=== PATIENT | male | born 2000 | race Asian ===

== ENCOUNTER 2019-03-25 19:54 | Inpatient (IN) | payer OTHER ==
[~2019-03-25] VITALS: Ht 177.8 cm; Wt 69.4 kg
--- NOTE | 2019-03-25 20:00 | NUR ---
ED Nurse Note: Patient not in waiting room
[2019-03-25 20:15] VITALS: BP 146/86
--- NOTE | 2019-03-25 20:15 | NUR ---
ER Nurse Note: Pt walked in c/o stomach pain for 3 days (03/23). Pt stated abd pain in mid lower abd, pain 01/21 that feels tight. Pt went to urgent care 03/24 for same problem, no relief. Pt stated last BM was 2 days ago with difficulty. Bowel sounds heard, abd firm. Will continue to montior.
--- NOTE | 2019-03-25 20:38 | Emergency Room Report ---
History of Present Illness General Chief Complaint: Constipation Source: Patient (Seb Rizo MD) Present Illness HPI Presents with several days of constipation. There is been no blood. He also feels nauseated dehydrated. He has been vomiting also but there is been no blood or coffee grounds. He denies any fevers or chills. He initially denied pain. Later he reports pain of 7/10. Pain is constant. It is infraumbilical. Aching pain. He denies diarrhea. He is never had this problem before. There is been no change in his eating habits. He denies recent ill contacts. No dysuria. He tried taking Dulcolax but it has not helped. Removed a scant amount of stool today that did not have any blood. It is hard to move his bowels. No sore throat, chest pain, palpitations, shortness of breath, joint pain, rashes, depression, anxiety, visual changes, headache. (Seb Rizo MD) Allergies: Coded Allergies: No Known Allergies (Unverified , 03/25/19) Patient History Past Medical History: see triage record Pertinent Family History: DM - Grandparents Social History: Denies: smoking, alcohol use, drug use Social History Narrative Brought by mother Reviewed Nursing Documentation: PMH: Agreed; PSxH: Agreed (Seb Rizo MD) Nursing Documentation-PMH Past Medical History: No Stated History (Seb Rizo MD) Review of Systems All Other Systems: negative except mentioned in HPI (Seb Rizo MD) Physical Exam Vital Signs Date Time Temp Pulse Resp B/P (MAP) Pulse Ox O2 Delivery O2 Flow Rate FiO2 03/25/19 20:06 98.2 70 18 146/86 (106) 99 Room Air Sp02 EP Interpretation: reviewed, normal General Appearance: well appearing, no apparent distress, GCS 15 Head: normocephalic Eyes: bilateral eye normal inspection, bilateral eye PERRL ENT: dry mucus membranes Neck: supple Respiratory: lungs clear, normal breath sounds Cardiovascular #1: regular rate, rhythm Cardiovascular #2: 2+ radial (R) Gastrointestinal: normal inspection, normal bowel sounds, non tender, no mass, non-distended, scaphoid Genitourinary: no CVA tenderness Musculoskeletal: back normal, gait/station normal, normal range of motion Neurologic: alert, oriented x3, grossly normal Psychiatric: mood/affect normal Skin: no rash (Seb Rizo MD) Medical Decision Making Diagnostic Impression: Primary Impression: Colitis Additional Impressions: Abdominal pain Qualified Codes: R10.9 - Unspecified abdominal pain Intractable vomiting Qualified Codes: R11.2 - Nausea with vomiting, unspecified Dehydration ER Course Patient presents with chief complaint of constipation. He minimizes the amount of pain that he is in. He is also been vomiting. He appears dehydrated. This does not appear to be simple constipation. Patient needs to be evaluated for diabetes, UTI. His abdomen is benign at this time. Will be treated with IV hydration, Reglan and Benadryl. White count elevated. He still has abdominal pain. He rates it 7/10 at this time and constant. The nausea is slightly improved. Feels the pain is not improved at all. He has right lower quadrant tenderness. CT is ordered to rule out appendicitis. Patient signed out to Dr. Downey Laboratory Tests Test 03/25/19 21:15 03/25/19 21:50 White Blood Count 12.3 K/UL (4.8-10.8) H Red Blood Count 5.87 M/UL (4.70-6.10) Hemoglobin 17.1 G/DL (14.2-18.0) Hematocrit 47.9 % (42.0-52.0) Mean Corpuscular Volume 82 FL (80-99) Mean Corpuscular Hemoglobin 29.1 PG (27.0-31.0) Mean Corpuscular Hemoglobin Concent 35.7 G/DL (32.0-36.0) Red Cell Distribution Width 10.5 % (11.6-14.8) L Platelet Count 300 K/UL (150-450) Mean Platelet Volume 6.3 FL (6.5-10.1) L Neutrophils (%) (Auto) 76.1 % (45.0-75.0) H Lymphocytes (%) (Auto) 15.7 % (20.0-45.0) L Monocytes (%) (Auto) 6.9 % (1.0-10.0) Eosinophils (%) (Auto) 0.8 % (0.0-3.0) Basophils (%) (Auto) 0.5 % (0.0-2.0) Prothrombin Time 10.7 SEC (9.30-11.50) Prothrombin Time INR 1.0 (0.9-1.1) PTT 30 SEC (23-33) Sodium Level 139 MMOL/L (136-145) Potassium Level 3.6 MMOL/L (3.5-5.1) Chloride Level 102 MMOL/L (98-107) Carbon Dioxide Level 24 MMOL/L (21-32) Anion Gap 13 mmol/L (5-15) Blood Urea Nitrogen 15 mg/dL (7-18) Creatinine 1.4 MG/DL (0.55-1.30) H Estimate Glomerular Filtration Rate > 60 mL/min (>60) Glucose Level 96 MG/DL (74-106) Calcium Level 9.4 MG/DL (8.5-10.1) Total Bilirubin 1.1 MG/DL (0.2-1.0) H Direct Bilirubin 0.1 MG/DL (0.0-0.3) Aspartate Amino Transferase (AST) 12 U/L (15-37) L Alanine Aminotransferase (ALT) 22 U/L (12-78) Alkaline Phosphatase 57 U/L (46-116) Total Creatine Kinase 125 U/L (26-308) Total Protein 8.6 G/DL (6.4-8.2) H Albumin 4.9 G/DL (3.4-5.0) Globulin 3.7 g/dL Albumin/Globulin Ratio 1.3 (1.0-2.7) Lipase 129 U/L (73-393) Urine Color Yellow Urine Appearance Clear Urine pH 6 (4.5-8.0) Urine Specific [place] 1.025 (1.005-1.035) Urine Protein 2+ (NEGATIVE) H Urine Glucose (UA) Negative (NEGATIVE) Urine Ketones 4+ (NEGATIVE) H Urine Blood 1+ (NEGATIVE) H Urine Nitrite Negative (NEGATIVE) Urine Bilirubin Negative (NEGATIVE) Urine Urobilinogen Normal MG/DL (0.0-1.0) Urine Leukocyte Esterase 1+ (NEGATIVE) H Urine RBC 2-4 /HPF (0 - 0) H Urine WBC 0-2 /HPF (0 - 0) Urine Squamous Epithelial Cells None /LPF (NONE/OCC) Urine Bacteria Few /HPF (NONE) Urine Opiates Screen Negative (NEGATIVE) Urine Barbiturates Screen Negative (NEGATIVE) Phencyclidine (PCP) Screen Negative (NEGATIVE) Urine Amphetamines Screen Negative (NEGATIVE) Urine Benzodiazepines Screen Negative (NEGATIVE) Urine Cocaine Screen Negative (NEGATIVE) Urine Marijuana (THC) Screen Negative (NEGATIVE) (Seb Rizo MD) ER Course Hospital Course 19 yo M presents with abd pain, vomiting Clinical course Patient initially seen and evaluated by KAYCEE Cedeño; please see her note for full history and physical Labs - noted leukocytosis, Hb/Hct stable. electrolyte susi, UA negative CT abdomen and pelvis - colitis noted, unable to visualize appendix Went to reassess patient. Patient continues to have pain and vomiting. Despite multiple rounds of medication. Case discussed with Dr. Dumas and he agreed to accept the patient to his service for further care and support I feel this is a highly complex case requiring extensive working including EKG/ Rhythm strip, Xray/CT/US, Blood/urine lab work, repeat exams while in ED, and administration of strong opiates/narcotics for pain control, admission to hospital or close patient follow up. Diagnosis - colitis, abdominal pain, intractable vomiting Patient admitted to floor in serious condition Labs Test 03/25/19 21:15 03/25/19 21:50 White Blood Count 12.3 K/UL (4.8-10.8) Red Blood Count 5.87 M/UL (4.70-6.10) Hemoglobin 17.1 G/DL (14.2-18.0) Hematocrit 47.9 % (42.0-52.0) Mean Corpuscular Volume 82 FL (80-99) Mean Corpuscular Hemoglobin 29.1 PG (27.0-31.0) Mean Corpuscular Hemoglobin Concent 35.7 G/DL (32.0-36.0) Red Cell Distribution Width 10.5 % (11.6-14.8) Platelet Count 300 K/UL (150-450) Mean Platelet Volume 6.3 FL (6.5-10.1) Neutrophils (%) (Auto) 76.1 % (45.0-75.0) Lymphocytes (%) (Auto) 15.7 % (20.0-45.0) Monocytes (%) (Auto) 6.9 % (1.0-10.0) Eosinophils (%) (Auto) 0.8 % (0.0-3.0) Basophils (%) (Auto) 0.5 % (0.0-2.0) Prothrombin Time 10.7 SEC (9.30-11.50) Prothromb Time International Ratio 1.0 (0.9-1.1) Activated Partial Thromboplast Time 30 SEC (23-33) Sodium Level 139 MMOL/L (136-145) Potassium Level 3.6 MMOL/L (3.5-5.1) Chloride Level 102 MMOL/L (98-107) Carbon Dioxide Level 24 MMOL/L (21-32) Anion Gap 13 mmol/L (5-15) Blood Urea Nitrogen 15 mg/dL (7-18) Creatinine 1.4 MG/DL (0.55-1.30) Estimat Glomerular Filtration Rate > 60 mL/min (>60) Glucose Level 96 MG/DL (74-106) Calcium Level 9.4 MG/DL (8.5-10.1) Total Bilirubin 1.1 MG/DL (0.2-1.0) Direct Bilirubin 0.1 MG/DL (0.0-0.3) Aspartate Amino Transf (AST/SGOT) 12 U/L (15-37) Alanine Aminotransferase (ALT/SGPT) 22 U/L (12-78) Alkaline Phosphatase 57 U/L (46-116) Total Creatine Kinase 125 U/L (26-308) Total Protein 8.6 G/DL (6.4-8.2) Albumin 4.9 G/DL (3.4-5.0) Globulin 3.7 g/dL Albumin/Globulin Ratio 1.3 (1.0-2.7) Lipase 129 U/L (73-393) Urine Color Yellow Urine Appearance Clear Urine pH 6 (4.5-8.0) Urine Specific [place] 1.025 (1.005-1.035) Urine Protein 2+ (NEGATIVE) Urine Glucose (UA) Negative (NEGATIVE) Urine Ketones 4+ (NEGATIVE) Urine Blood 1+ (NEGATIVE) Urine Nitrite Negative (NEGATIVE) Urine Bilirubin Negative (NEGATIVE) Urine Urobilinogen Normal MG/DL (0.0-1.0) Urine Leukocyte Esterase 1+ (NEGATIVE) Urine RBC 2-4 /HPF (0 - 0) Urine WBC 0-2 /HPF (0 - 0) Urine Squamous Epithelial Cells None /LPF (NONE/OCC) Urine Bacteria Few /HPF (NONE) Urine Opiates Screen Negative (NEGATIVE) Urine Barbiturates Screen Negative (NEGATIVE) Phencyclidine (PCP) Screen Negative (NEGATIVE) Urine Amphetamines Screen Negative (NEGATIVE) Urine Benzodiazepines Screen Negative (NEGATIVE) Urine Cocaine Screen Negative (NEGATIVE) Urine Marijuana (THC) Screen Negative (NEGATIVE) (Irving Downey MD) CT/MRI/US Diagnostic Results CT/MRI/US Diagnostic Results : Imaging Test Ordered: CT A/P Impression Clinical history was limited to abdominal pain only. Motion degraded study. Hepatomegaly and mild hepatic steatosis present. No acute findings involving the solid abdominal organs or gallbladder. Lower GI tract demonstrates no obstruction or pneumatosis. Nonspecific wall thickening of the rectosigmoid colon may reflect distal colitis. Moderate liquid stool present in the colon suggesting acute enteritis or other acute diarrheal disease. The appendix was not visualized. Negative for pneumoperitoneum or abdominal pelvic fluid collections. Urinary bladder demonstrates mild wall thickening with reticulation likely related to chronic outlet obstruction, cystitis not excluded. (Irving Downey MD) Last Vital Signs Date Time Temp Pulse Resp B/P (MAP) Pulse Ox O2 Delivery O2 Flow Rate FiO2 03/26/19 02:29 98.6 59 18 150/85 (106) 99 03/26/19 01:16 Room Air Status: improved (Seb Rizo MD) Status: improved (Irving Downey MD) Disposition: ADMITTED INPATIENT Condition: Serious Seb Rizo MD Mar 25, 2019 20:38 Irving Downey MD Mar 26, 2019 01:46
[2019-03-25] MEDS ORDERED: DiphenhydrAMINE 50mg/ml Inj IVP ONE (20:45)
[2019-03-25] MEDS ORDERED: Metoclopramide 10mg/2ml Inj IVP ONE (20:45)
[2019-03-25 21:41] LABS: BASOPHILS % (AUTO) 0.5 % (0.0-2.0); EOSINOPHILS % (AUTO) 0.8 % (0.0-3.0); HEMATOCRIT 47.9 % (42.0-52.0); HEMOGLOBIN 17.1 G/DL (14.2-18.0); LYMPHOCYTES % (AUTO) 15.7 % (20.0-45.0); MEAN CORPUSCULAR VOLUME 82 FL (80-99); MONOCYTES % (AUTO) 6.9 % (1.0-10.0); NEUTROPHILS % (AUTO) 76.1 % (45.0-75.0); PLATELET COUNT 300 K/UL (150-450); RED BLOOD COUNT 5.87 M/UL (4.70-6.10); RED CELL DISTRIBUTION WIDTH 10.5 % (11.6-14.8); WHITE BLOOD COUNT 12.3 K/UL (4.8-10.8)
[2019-03-25 21:42] LABS: ANION GAP 13 mmol/L (5-15); BLOOD UREA NITROGEN 15 mg/dL (7-18); CALCIUM 9.4 MG/DL (8.5-10.1); CARBON DIOXIDE 24 MMOL/L (21-32); CHLORIDE 102 MMOL/L (98-107); CREATININE 1.4 MG/DL (0.55-1.30); POTASSIUM 3.6 MMOL/L (3.5-5.1); SODIUM 139 MMOL/L (136-145)
[2019-03-25 21:55] LABS: ALANINE AMINOTRANSFERASE 22 U/L (12-78); ALBUMIN 4.9 G/DL (3.4-5.0); ALBUMIN/GLOBULIN RATIO 1.3 (1.0-2.7); ALKALINE PHOSPHATASE 57 U/L (46-116); ASPARTATE AMINO TRANSFERASE 12 U/L (15-37); BILIRUBIN,TOTAL 1.1 MG/DL (0.2-1.0); CREATINE KINASE 125 U/L (26-308)
[2019-03-25 22:08] LABS: BILIRUBIN,DIRECT 0.1 MG/DL (0.0-0.3)
[2019-03-25] MEDS ORDERED: Sodium Chloride 550 ML IV SCH (22:30)
[2019-03-25] MEDS ORDERED: Isovue-300 100ml vial INJ PRN (22:30)
[2019-03-25] MEDS ORDERED: Ketorolac 30mg Inj IV ONE (22:30)
[2019-03-25 22:43] LABS: APPEARANCE,URINE CLEAR; BILIRUBIN, URINE NEGATIVE (NEGATIVE); GLUCOSE, URINE (UA) NEGATIVE (NEGATIVE); KETONES,URINE 4+ (NEGATIVE); LEUKOCYTE ESTERASE ,URINE 1+ (NEGATIVE); NITRITE,URINE NEGATIVE (NEGATIVE); PH,URINE 6 (4.5-8.0); PROTEIN,URINE 2+ (NEGATIVE); UROBILINOGEN,URINE NORMAL MG/DL (0.0-1.0)
[2019-03-25 22:45] LABS: COLOR,URINE YELLOW
[2019-03-25 23:00] VITALS: BP 140/78
--- NOTE | 2019-03-25 23:10 | Diagnostic Imaging Report ---
Indication: Abdominal pain Technique: Continuous helical transaxial imaging of the abdomen and pelvis was obtained from the lung bases to the pubic symphysis during intravenous contrast administration. Coronal 2-D reformats were also obtained. Study obtained in a Siemens sensation [address] Automatic Exposure Control was utilized. Total Dose length Product (DLP): 651.[address] Dose Index Volume (CTDIvol): 12.54 mGy Comparison: None Findings: The lung bases are clear. Solid organs are unremarkable. There is no evidence of a free fluid or free air. No evidence of bowel obstruction. Liquefied stool in the colon may be a sign of diarrhea. Correlate clinically for gastroenteritis. Solid organs appear normal. There is no hydronephrosis. Lung bases are clear. Gallbladder is unremarkable. IMPRESSION: Correlate for diarrhea given liquefied stool in the colon. Gastroenteritis may be present. Negative exam otherwise The CT scanner at [facility] is accredited by the [employer] and the scans are performed using dose optimization techniques as appropriate to a performed exam including Automatic Exposure control.
[2019-03-26] VITALS (7 sets, daily range): BP systolic 121–150; BP diastolic 63–85
--- NOTE | 2019-03-26 | NUR ---
ER Nurse Note: Pt is vomiting, ERMD aware; first episode of n/v. Pt is on continous fluids; tolerating well. Pt no distress, calm. Will continue to montior.
[2019-03-26] MEDS ORDERED: Morphine Sulfate 4mg/ml Inj (IV USE ONLY) IVP ONE (00:30)
[2019-03-26] MEDS ORDERED: NKM (00:49)
--- NOTE | 2019-03-26 02:05 | NUR ---
ER Nurse Note: Report given to ABELARDO Williamson in [place] for contintuiy of care. Pt a&ox4, VSS, no fever, RA, stable. All belongings taken with mom.
--- NOTE | 2019-03-26 02:20 | NUR ---
NURSE NOTES: Patient came from ER via gurney. A&OX4. IV site patent and intact. Skin intact. Belongings are checked. Mother at bedside. Bed in lowest position. Call light within reach. Will continue to monitor.
--- NOTE | 2019-03-26 02:33 | NUR ---
NURSE NOTES: Call and left message to Dr. Dumas for new admit order. Waiting a call back.
[2019-03-26] MEDS ORDERED: Morphine Sulfate 2mg/ml Inj(IV/IM USE ONLY) IVP PRN (03:00)
[2019-03-26] MEDS: Piperacillin/Tazobactam 3.375 GM in NS 110 ML IVPB SCH ×3 (03:40→20:00)
--- NOTE | 2019-03-26 07:23 | NUR ---
HAND-OFF: Report given to Mat ZHOU.
--- NOTE | 2019-03-26 08:04 | NUR ---
NURSE NOTES: received report from ABELARDO Arzola. patient in bed. alert. oriented. verbally responsive, no respiratory distress noted. no c/o abd pain at this time. IV on RAC18 running fluid. no n/v at this time. bed in the lowest position. call light within reach. will continue to provide plan of care.
--- NOTE | 2019-03-26 10:25 | NUR ---
CASE MANAGEMENT:REVIEW 19 YR OLD MALE PRESENTED TO ER FROM HOME CC; ABDOMINAL PAIN SI:COLITIS. ABDOMINAL PAIN. DEHYDRATION 98.3 70 18 146/86 99% ON RA WBC+12.3 IS: IV REGLAN 1L NS BOLUS IV BENADRYL IV TORADOL IV MORPHINE IV ZOFRAN CT ABD/PELVIS : TO MED/SURG [facility]
--- NOTE | 2019-03-26 10:52 | General Progress Note ---
Assessment/Plan Assessment/Plan: GI CONSULT Dictated Suspect uncomplicated gastroenteritis, possibly viral. Will order stool studies. Continue hydration PO as tolerated OK to observe off abx Thank you Severo Hatfield MD Subjective Allergies: Coded Allergies: No Known Allergies (Unverified , 03/25/19) Objective Last 24 Hour Vital Signs Date Time Temp Pulse Resp B/P (MAP) Pulse Ox O2 Delivery O2 Flow Rate FiO2 03/26/19 09:00 Room Air 03/26/19 08:00 98.3 58 20 125/73 (90) 100 03/26/19 04:00 98.0 53 22 121/69 (86) 100 03/26/19 02:42 Room Air 03/26/19 02:29 98.6 59 18 150/85 (106) 99 03/26/19 02:05 98.0 68 16 112/70 99 Room Air 03/26/19 01:54 98.2 03/26/19 01:54 98.2 03/26/19 01:16 98.2 82 16 138/80 99 Room Air 03/25/19 23:00 98.2 80 18 140/78 99 Room Air 03/25/19 20:15 98.2 76 18 146/86 99 Room Air 03/25/19 20:06 98.2 70 18 146/86 (106) 99 Room Air Intake and Output 03/25/19 03/26/19 19:00 07:00 Intake Total 4982.5 ml Balance 4982.5 ml Intake IV Total 4982.5 ml # Voids 1 Laboratory Tests 03/25/19 21:15: White Blood Count 12.3H, Red Blood Count 5.87, Hemoglobin 17.1, Hematocrit 47.9 , Mean Corpuscular Volume 82, Mean Corpuscular Hemoglobin 29.1, Mean Corpuscular Hemoglobin Concent 35.7, Red Cell Distribution Width 10.5L, Platelet Count 300, Mean Platelet Volume 6.3L, Neutrophils (%) (Auto) 76.1H, Lymphocytes (%) (Auto) 15.7L, Monocytes (%) (Auto) 6.9, Eosinophils (%) (Auto) 0.8, Basophils (%) (Auto) 0.5, Prothrombin Time 10.7, Prothromb Time International Ratio 1.0, Activated Partial Thromboplast Time 30, Sodium Level 139, Potassium Level 3.6, Chloride Level 102, Carbon Dioxide Level 24, Anion Gap 13, Blood Urea Nitrogen 15, Creatinine 1.4H, Estimat Glomerular Filtration Rate > 60, Glucose Level 96, Calcium Level 9.4, Total Bilirubin 1.1H, Direct Bilirubin 0.1, Aspartate Amino Transf (AST/SGOT) 12L, Alanine Aminotransferase ( ALT/SGPT) 22, Alkaline Phosphatase 57, Total Creatine Kinase 125, Total Protein 8.6H, Albumin 4.9, Globulin 3.7, Albumin/Globulin Ratio 1.3, Lipase 129 03/25/19 21:50: Urine Color Yellow, Urine Appearance Clear, Urine pH 6, Urine Specific [place] 1.025, Urine Protein 2+H, Urine Glucose (UA) Negative, Urine Ketones 4+H, Urine Blood 1+H, Urine Nitrite Negative, Urine Bilirubin Negative, Urine Urobilinogen Normal, Urine Leukocyte Esterase 1+H, Urine RBC 2-4H, Urine WBC 0-2, Urine Squamous Epithelial Cells None, Urine Bacteria Few, Urine Opiates Screen Negative, Urine Barbiturates Screen Negative, Phencyclidine (PCP) Screen Negative, Urine Amphetamines Screen Negative, Urine Benzodiazepines Screen Negative, Urine Cocaine Screen Negative, Urine Marijuana (THC) Screen Negative Height (Feet): 5 Height (Inches): 10.00 Weight (Pounds): 153 Severo Hatfield MD Mar 26, 2019 10:52
--- NOTE | 2019-03-26 11:03 | NUR ---
*-* INSURANCE *-* ALL CLINICALS AND REVIEWS HAVE BEEN FAXED TO: [employer] FA[employer] CL[employer]ICALS TO: [phone]
--- NOTE | 2019-03-26 14:46 | Consultation ---
History of Present Illness General Date patient seen: Mar 26, 2019 Reason for Hospitalization: Constipation Present Illness HPI Very pleasant 19-year-old female presented to the emergency department [facility] complaining of worsening abdominal discomfort, constipation, feeling unwell. Complaining of generalized abdominal discomfort with some radiation in the right lower quadrant as well as left lower quadrant. Labs with leukocytosis. CT as below. Surgery called to evaluate and assist with care and management. Patient seen, patient evaluated, chart reviewed. Patient' s mother in the room alongside him. States he feels well and is urinating well and passing flatus but has not had a bowel movement yet. Allergies: Coded Allergies: No Known Allergies (Unverified , 03/25/19) Medication History Scheduled No Known Medications* (NKM - No Known Medications*), 0 ., (Reported) Patient History History Provided By: Patient, Family Member, Medical Record, PMD Healthcare decision maker Resuscitation status Full Code Advanced Directive on File Past Medical/Surgical History Past Medical/Surgical History: (1) Dehydration (2) Colitis (3) Intractable vomiting (4) Abdominal pain Review of Systems Review of Symptoms General ROS: no weight loss or fever Psychological ROS: no depression or mood changes, no memory loss Ophthalmic ROS: no visual changes or eye irritation ENT ROS: no nasal congestion, hearing loss, dizziness Allergy and Immunology ROS: no allergic symptoms or urticaria Hematological and Lymphatic ROS: no swollen glands, unusual bleeding or bruising Endocrine ROS: no polyuria, polydipsia, weight changes, temperature intolerance Respiratory ROS: no cough, shortness of breath, or wheezing Cardiovascular ROS: no chest pain or dyspnea on exertion Gastrointestinal ROS: denies abdominal pain, nobright red blood in stool. Musculoskeletal ROS: no myalgias or arthralgias Neurological ROS: no TIA or stroke symptoms Dermatological ROS: no new or changing skin lesions, rashes or pruritis Physical Exam Physical Exam General appearance: alert, cooperative, no distress, appears stated age Head: Normocephalic, without obvious abnormality, atraumatic Eyes: conjunctivae/corneas clear. PERRL, EOM's intact. Fundi benign Throat: Lips, mucosa, and tongue normal. Teeth and gums normal Neck: supple, symmetrical, trachea midline, no adenopathy, thyroid: not enlarged, symmetric, no tenderness/mass/nodules, no carotid bruit and no JVD Lungs: clear to auscultation bilaterally Heart: regular rate and rhythm, S1, S2 normal, no murmur, click, rub or gallop Abdomen: soft, non-tender. Bowel sounds normal. No masses, no organomegaly Extremities: extremities normal, atraumatic, no cyanosis or edema Pulses: 2+ and symmetric Skin: Skin color, texture, turgor normal. No rashes or lesions Neurologic: Grossly normal Last 24 Hour Vital Signs Date Time Temp Pulse Resp B/P (MAP) Pulse Ox O2 Delivery O2 Flow Rate FiO2 03/26/19 12:00 97.3 63 20 133/63 (86) 98 03/26/19 09:00 Room Air 03/26/19 08:00 98.3 58 20 125/73 (90) 100 03/26/19 04:00 98.0 53 22 121/69 (86) 100 03/26/19 02:42 Room Air 03/26/19 02:29 98.6 59 18 150/85 (106) 99 03/26/19 02:05 98.0 68 16 112/70 99 Room Air 03/26/19 01:54 98.2 03/26/19 01:54 98.2 03/26/19 01:16 98.2 82 16 138/80 99 Room Air 03/25/19 23:00 98.2 80 18 140/78 99 Room Air 03/25/19 20:15 98.2 76 18 146/86 99 Room Air 03/25/19 20:06 98.2 70 18 146/86 (106) 99 Room Air Intake and Output 03/25/19 03/26/19 19:00 07:00 Intake Total 4982.5 ml Balance 4982.5 ml Intake IV Total 4982.5 ml # Voids 1 Laboratory Tests Test 03/25/19 21:15 03/25/19 21:50 White Blood Count 12.3 K/UL (4.8-10.8) H Red Blood Count 5.87 M/UL (4.70-6.10) Hemoglobin 17.1 G/DL (14.2-18.0) Hematocrit 47.9 % (42.0-52.0) Mean Corpuscular Volume 82 FL (80-99) Mean Corpuscular Hemoglobin 29.1 PG (27.0-31.0) Mean Corpuscular Hemoglobin Concent 35.7 G/DL (32.0-36.0) Red Cell Distribution Width 10.5 % (11.6-14.8) L Platelet Count 300 K/UL (150-450) Mean Platelet Volume 6.3 FL (6.5-10.1) L Neutrophils (%) (Auto) 76.1 % (45.0-75.0) H Lymphocytes (%) (Auto) 15.7 % (20.0-45.0) L Monocytes (%) (Auto) 6.9 % (1.0-10.0) Eosinophils (%) (Auto) 0.8 % (0.0-3.0) Basophils (%) (Auto) 0.5 % (0.0-2.0) Prothrombin Time 10.7 SEC (9.30-11.50) Prothromb Time International Ratio 1.0 (0.9-1.1) Activated Partial Thromboplast Time 30 SEC (23-33) Sodium Level 139 MMOL/L (136-145) Potassium Level 3.6 MMOL/L (3.5-5.1) Chloride Level 102 MMOL/L (98-107) Carbon Dioxide Level 24 MMOL/L (21-32) Anion Gap 13 mmol/L (5-15) Blood Urea Nitrogen 15 mg/dL (7-18) Creatinine 1.4 MG/DL (0.55-1.30) H Estimat Glomerular Filtration Rate > 60 mL/min (>60) Glucose Level 96 MG/DL (74-106) Calcium Level 9.4 MG/DL (8.5-10.1) Total Bilirubin 1.1 MG/DL (0.2-1.0) H Direct Bilirubin 0.1 MG/DL (0.0-0.3) Aspartate Amino Transf (AST/SGOT) 12 U/L (15-37) L Alanine Aminotransferase (ALT/SGPT) 22 U/L (12-78) Alkaline Phosphatase 57 U/L (46-116) Total Creatine Kinase 125 U/L (26-308) Total Protein 8.6 G/DL (6.4-8.2) H Albumin 4.9 G/DL (3.4-5.0) Globulin 3.7 g/dL Albumin/Globulin Ratio 1.3 (1.0-2.7) Lipase 129 U/L (73-393) Urine Color Yellow Urine Appearance Clear Urine pH 6 (4.5-8.0) Urine Specific [place] 1.025 (1.005-1.035) Urine Protein 2+ (NEGATIVE) H Urine Glucose (UA) Negative (NEGATIVE) Urine Ketones 4+ (NEGATIVE) H Urine Blood 1+ (NEGATIVE) H Urine Nitrite Negative (NEGATIVE) Urine Bilirubin Negative (NEGATIVE) Urine Urobilinogen Normal MG/DL (0.0-1.0) Urine Leukocyte Esterase 1+ (NEGATIVE) H Urine RBC 2-4 /HPF (0 - 0) H Urine WBC 0-2 /HPF (0 - 0) Urine Squamous Epithelial Cells None /LPF (NONE/OCC) Urine Bacteria Few /HPF (NONE) Urine Opiates Screen Negative (NEGATIVE) Urine Barbiturates Screen Negative (NEGATIVE) Phencyclidine (PCP) Screen Negative (NEGATIVE) Urine Amphetamines Screen Negative (NEGATIVE) Urine Benzodiazepines Screen Negative (NEGATIVE) Urine Cocaine Screen Negative (NEGATIVE) Urine Marijuana (THC) Screen Negative (NEGATIVE) Height (Feet): 5 Height (Inches): 10.00 Weight (Pounds): 153 Medications Current Medications Medications (Trade) Dose Ordered Sig/Tiesha Route PRN Reason Start Time Stop Time Status Last Admin Dose Admin Dextrose/ Electrolytes 1,000 ml @ 150 mls/hr Q6H40M IV 03/26/19 04:00 04/25/19 03:59 03/26/19 12:19 Morphine Sulfate (Morphine Sulfate) 2 mg Q4H PRN IVP For Pain 03/26/19 03:00 04/02/19 02:59 Ondansetron HCl (Zofran) 4 mg Q6H PRN IVP Nausea & Vomiting 03/26/19 03:00 04/25/19 02:59 Piperacillin Sod/ Tazobactam Sod 3.375 gm/Sodium Chloride 110 ml @ 27.5 mls/hr Q8H IVPB 03/26/19 04:00 04/02/19 03:59 03/26/19 12:25 Assessment/Plan Problem List: (1) Colitis Assessment & Plan: Findings: The lung bases are clear. Solid organs are unremarkable. There is no evidence of a free fluid or free air. No evidence of bowel obstruction. Liquefied stool in the colon may be a sign of diarrhea. Correlate clinically for gastroenteritis. Solid organs appear normal. There is no hydronephrosis. Lung bases are clear. Gallbladder is unremarkable. IMPRESSION: Correlate for diarrhea given liquefied stool in the colon. Gastroenteritis may be present. Negative exam otherwise ICD Codes: K52.9 - Noninfective gastroenteritis and colitis, unspecified SNOMED: 48777829 (2) Abdominal pain Assessment & Plan: 19-year-old male with abdominal discomfort, constipation, dehydration. Likely viral in nature. CT noted. GI input appreciated. Given labs exam history and findings unlikely to be appendicitis or other surgical planning at this time. Abdominal pain is resolved since admission and he is colicky from above discomfort. No acute surgical intervention planned. Bowel regimen Diet as tolerated We will follow with examinations and recommendations Thank you for allowing me to participate in patient's care ICD Codes: R10.9 - Unspecified abdominal pain SNOMED: 82231148 Qualifiers: Qualified Codes: R10.9 - Unspecified abdominal pain Yoshi Dial Mar 26, 2019 14:46
--- NOTE | 2019-03-26 19:27 | NUR ---
HAND-OFF: Report given to PROSPER Haas.
--- NOTE | 2019-03-26 20:00 | NUR ---
NURSE NOTES: RECEIVED PATIENT LYING IN BED, AWAKE, ALERT/ORIENTED X4, VERBALLY RESPONSIVE, DENIES ABDOMINAL PAIN, N/V/D. NO SIGNS AND SYMPTOMS OF ACUTE CARDIO RESPIRATORY DISTRESS/SHORTNESS OF BREATH, DENIES CHEST PAIN, NO EDEMA NOTED. TOLERATING IV FLUIDS, NO REDNESS/SWELLING NOTED. TOLERATING IV ANTIBIOTIC, NO ADVERSE REACTION NOTED. STOOL SPECIMEN NEEDED FOR CULTURE, PATIENT AWARE. SIDE RAILS UP X3/BED IN LOWEST POSITION FOR SAFETY. CALL LIGHT WITHIN REACH. NAD.
--- NOTE | 2019-03-26 20:45 | Consultation ---
DATE OF CONSULTATION: 03/26/2019 GASTROENTEROLOGY CONSULTATION CHIEF COMPLAINT: I was asked to see this patient by Dr. Seb Dumas for evaluation of abdominal issues. HISTORY OF PRESENT ILLNESS: The patient is a pleasant 19-year-old man, who first noted about 3 days of constipation. He took 2 Dulcolax tablets yesterday, which resulted in diarrhea. He also had some mild degree of pain and predominantly nausea and some vomiting. He therefore came to the emergency room where evaluation showed some mild degree of leukocytosis with azotemia and there were some ill-defined changes in the distal colon on the CT scan. Therefore, he has been admitted to the hospital. There is no hematochezia or hematemesis. He has usually regular bowel movements. He has had no recent trips and no recent antibiotics and no contacts and no pets. His mother however is visiting from out of town for the past 2 weeks. PAST MEDICAL HISTORY: Otherwise negative. FAMILY HISTORY: Positive for diabetes. MEDICATIONS: As an outpatient, none. ALLERGIES: None. SOCIAL HISTORY: The patient is single. He does not smoke or drink. He school. REVIEW OF SYSTEMS: Otherwise negative. PHYSICAL EXAMINATION: GENERAL: A pleasant thin man, seen in his room. HEENT: Normocephalic and atraumatic. Sclerae are anicteric. Oropharynx clear. NECK: Supple. CHEST: Clear to auscultation. CARDIOVASCULAR: Revealed a regular rate. ABDOMEN: Soft and nontender with good bowel sounds. There is no organomegaly or masses. EXTREMITIES: Revealed no edema. LABORATORY DATA: Noted. ASSESSMENT: This patient presents with three days of initial constipation and with subsequent bout of diarrhea after taking Dulcolax. The colonic images show liquefied stool on the CT scan. Therefore, I suspected underlying pathologies actually for gastroenteritis, which perhaps felt like constipation to the patient, but in reality, there was an inflammatory process. The patient's stool should be checked for typical cultures and pathogens, but treatment can be conservative. Oral diet can be given. IV hydration should be completed. The patient can be given a course of Cipro and Flagyl alternatively, but he can be watched off antibiotics depending on the stool results. RECOMMENDATIONS: Per above discussion and per orders written in the chart. Thank you for asking me to participate in the care of this patient. Severo Hatfield M.D. DR: NUBIA JOB#: [id number] CC:
--- NOTE | 2019-03-26 22:56 | NUR ---
NURSE NOTES: STOOL SPECIMEN COLLECTED AND SENT TO LAB FOR CULTURE-
[2019-03-27] VITALS: BP 125/80
--- NOTE | 2019-03-27 00:15 | History and Physical Report ---
DATE OF ADMISSION: 03/26/2019 REASON FOR ADMISSION: Abdominal pain. HISTORY OF PRESENT ILLNESS: This 19-year-old male with no prior history of GI illness has had 3 days of constipation. He took Dulcolax tablets x2 and developed diarrhea. He has had some nausea and vomiting subsequently and came to the emergency room where he was noted to have some mild leukocytosis and a CAT scan revealing some distal colon irregularities that possibly suggests colitis. The patient has not had any recent travel, recent antibiotic use, or recent unusual oral intake. ALLERGIES: None. MEDICATIONS: None. FAMILY HISTORY: Notable for diabetes. PAST MEDICAL HISTORY: Negative. SOCIAL HISTORY: Negative for smoking, alcohol, or substance abuse. REVIEW OF SYSTEMS: A 10-point review of systems performed. All systems negative other than noted above. PHYSICAL EXAMINATION: VITAL SIGNS: Blood pressure 121/69, pulse 53, respirations 22, afebrile. HEENT: Conjunctivae pink. Oropharynx clear. Mucous membranes moist. NECK: Supple. Jugular venous pressure normal. LUNGS: Clear. No adenopathy. CARDIAC: Regular. Normal S1, S2 with no murmur. ABDOMEN: Soft. Good bowel sounds. No focal tenderness, guarding, or rebound. EXTREMITIES: Without edema. LABORATORY DATA: Reviewed. IMPRESSION: 1. Possible gastroenteritis. 2. Possible acute colitis. 3. Mild hypovolemia. 4. Dehydration. PLAN: 1. IV fluid hydration. 2. Empiric antimicrobials. 3. Stool studies. Seb Dumas M.D. DR: [place] JOB#: [id number] CC:
[2019-03-27 04:00] VITALS: BP 122/69
[2019-03-27] MEDS: Piperacillin/Tazobactam 3.375 GM in NS 110 ML IVPB SCH ×2 (04:14→12:34)
--- NOTE | 2019-03-27 06:48 | NUR ---
NURSE NOTES: RESTED WELL, NO SIGNIFICANT CHANGE OF CONDITION NOTED THROUGHOUT THE NIGHT. SAFETY MAINTAINED. NAD.
[2019-03-27 07:24] LABS: BASOPHILS % (AUTO) 0.7 % (0.0-2.0); EOSINOPHILS % (AUTO) 0.8 % (0.0-3.0); HEMATOCRIT 46.9 % (42.0-52.0); HEMOGLOBIN 15.6 G/DL (14.2-18.0); MEAN CORPUSCULAR VOLUME 87 FL (80-99); MONOCYTES % (AUTO) 9.1 % (1.0-10.0); NEUTROPHILS % (AUTO) 79.5 % (45.0-75.0); PLATELET COUNT 233 K/UL (150-450); RED BLOOD COUNT 5.39 M/UL (4.70-6.10); RED CELL DISTRIBUTION WIDTH 11.3 % (11.6-14.8); WHITE BLOOD COUNT 8.2 K/UL (4.8-10.8)
--- NOTE | 2019-03-27 07:50 | NUR ---
NURSE NOTES: received report from ABELARDO Haas. patient in bed. alert. oriented. verbally responsive. no respiratory distress noted. no c/o abd pain. no n/v at this time. IV on RAC running zosyn. bed in the lowest position. call light within reach. will continue to provide plan of care.
[2019-03-27 08:00] VITALS: BP 127/71
[2019-03-27 08:06] LABS: ANION GAP 7 mmol/L (5-15); BLOOD UREA NITROGEN 10 mg/dL (7-18); CALCIUM 9.1 MG/DL (8.5-10.1); CARBON DIOXIDE 28 MMOL/L (21-32); CHLORIDE 104 MMOL/L (98-107); CREATININE 1.3 MG/DL (0.55-1.30); POTASSIUM 3.9 MMOL/L (3.5-5.1); SODIUM 139 MMOL/L (136-145)
--- NOTE | 2019-03-27 11:21 | NUR ---
CASE MANAGEMENT:REVIEW 03/27/19 SI: POSSIBLE GASTROENTERITIS POSSIBLE ACUTE COLITIS. DEHYDRATION 98.0 78 18 122/69 96% ON RA LABS ~ WNL IS: IV ZOSYN Q8HRS IVF@100/HR : MED/SURG STATUS 4 EAST PLAN: STOOL CULTURE RESULTS PENDING LOW FAT DIET
[2019-03-27 12:00] VITALS: BP 142/74
--- NOTE | 2019-03-27 13:48 | NUR ---
NURSE NOTES: patient discharged to home with stable condition assisted by mother by walking. no respiratory distress noted. no c/o any pain at this time. no n/v. no diarrhea. checked and counted belongings with patient and obtained sign. provide dc packet and got patient's sign. given new prescription Augmentin 500mg po bid #10. by Dr. olsen. removed IV and ID band.
--- NOTE | 2019-03-27 14:35 | General Progress Note ---
Assessment/Plan Assessment/Plan: Assesssment - enteritis, resolving - mild leukocystosis, resolved - presumed self limited viral gastroenteritis Recommendations - push po - OK to watch off of abx - d/c planning - Outpatient f/u Subjective Allergies: Coded Allergies: No Known Allergies (Unverified , 03/25/19) Subjective feels ok (+) BM tolerating PO d/w PMD Objective Last 24 Hour Vital Signs Date Time Temp Pulse Resp B/P (MAP) Pulse Ox O2 Delivery O2 Flow Rate FiO2 03/27/19 12:00 98.2 73 18 142/74 (96) 97 03/27/19 09:00 Room Air 03/27/19 08:00 98.1 67 18 127/71 (89) 97 03/27/19 04:00 98.0 78 18 122/69 (86) 96 03/27/19 00:00 97.9 79 20 125/80 (95) 97 03/26/19 21:00 Room Air 03/26/19 20:00 98.7 83 18 127/75 (92) 97 03/26/19 16:00 98.1 75 20 134/76 (95) 99 Intake and Output 03/26/19 03/27/19 19:00 07:00 Intake Total 1650.0 ml 915.0 ml Balance 1650.0 ml 915.0 ml Intake Oral 1240 ml IV Total 410.0 ml 915.0 ml # Voids 8 2 # Bowel Movements 2 Laboratory Tests 03/27/19 06:45: White Blood Count 8.2, Red Blood Count 5.39, Hemoglobin 15.6, Hematocrit 46.9, Mean Corpuscular Volume 87, Mean Corpuscular Hemoglobin 28.9, Mean Corpuscular Hemoglobin Concent 33.2, Red Cell Distribution Width 11.3L, Platelet Count 233, Mean Platelet Volume 7.2, Neutrophils (%) (Auto) 79.5H, Lymphocytes (%) (Auto) 10.0L, Monocytes (%) (Auto) 9.1, Eosinophils (%) (Auto) 0.8, Basophils (%) (Auto ) 0.7, Erythrocyte Sedimentation Rate 2, Sodium Level 139, Potassium Level 3.9, Chloride Level 104, Carbon Dioxide Level 28, Anion Gap 7, Blood Urea Nitrogen 10 , Creatinine 1.3, Estimat Glomerular Filtration Rate > 60, Glucose Level 102, Calcium Level 9.1, C-Reactive Protein, Quantitative < 0.4 Height (Feet): 5 Height (Inches): 10.00 Weight (Pounds): 153 Severo Hatfield MD Mar 27, 2019 14:35
--- NOTE | 2019-03-27 15:41 | Surgery Progress Note ---
Surgery Progress Note Subjective Symptoms: improved, pain absent, tolerating diet, voiding well, passing flatus , BM Additional Comments Patient seen and examined bedside. States he had a bowel movement. Feels much better. No pain. No nausea vomiting fever chills. labs improved Objective Last 24 Hour Vital Signs Date Time Temp Pulse Resp B/P (MAP) Pulse Ox O2 Delivery O2 Flow Rate FiO2 03/27/19 12:00 98.2 73 18 142/74 (96) 97 03/27/19 09:00 Room Air 03/27/19 08:00 98.1 67 18 127/71 (89) 97 03/27/19 04:00 98.0 78 18 122/69 (86) 96 03/27/19 00:00 97.9 79 20 125/80 (95) 97 03/26/19 21:00 Room Air 03/26/19 20:00 98.7 83 18 127/75 (92) 97 03/26/19 16:00 98.1 75 20 134/76 (95) 99 I&O Intake and Output 03/26/19 03/27/19 19:00 07:00 Intake Total 1650.0 ml 915.0 ml Balance 1650.0 ml 915.0 ml Intake Oral 1240 ml IV Total 410.0 ml 915.0 ml # Voids 8 2 # Bowel Movements 2 Cardiovascular: RSR Respiratory: clear Abdomen: soft, non-tender, present bowel sounds, non-distended Extremities: no edema, no tenderness, no cyanosis Laboratory Tests Test 03/27/19 06:45 White Blood Count 8.2 K/UL (4.8-10.8) Red Blood Count 5.39 M/UL (4.70-6.10) Hemoglobin 15.6 G/DL (14.2-18.0) Hematocrit 46.9 % (42.0-52.0) Mean Corpuscular Volume 87 FL (80-99) Mean Corpuscular Hemoglobin 28.9 PG (27.0-31.0) Mean Corpuscular Hemoglobin Concent 33.2 G/DL (32.0-36.0) Red Cell Distribution Width 11.3 % (11.6-14.8) L Platelet Count 233 K/UL (150-450) Mean Platelet Volume 7.2 FL (6.5-10.1) Neutrophils (%) (Auto) 79.5 % (45.0-75.0) H Lymphocytes (%) (Auto) 10.0 % (20.0-45.0) L Monocytes (%) (Auto) 9.1 % (1.0-10.0) Eosinophils (%) (Auto) 0.8 % (0.0-3.0) Basophils (%) (Auto) 0.7 % (0.0-2.0) Erythrocyte Sedimentation Rate 2 MM/HR (0-15) Sodium Level 139 MMOL/L (136-145) Potassium Level 3.9 MMOL/L (3.5-5.1) Chloride Level 104 MMOL/L (98-107) Carbon Dioxide Level 28 MMOL/L (21-32) Anion Gap 7 mmol/L (5-15) Blood Urea Nitrogen 10 mg/dL (7-18) Creatinine 1.3 MG/DL (0.55-1.30) Estimat Glomerular Filtration Rate > 60 mL/min (>60) Glucose Level 102 MG/DL (74-106) Calcium Level 9.1 MG/DL (8.5-10.1) C-Reactive Protein, Quantitative < 0.4 mg/dL (0.00-0.90) Plan Problems: (1) Colitis Assessment & Plan: Findings: The lung bases are clear. Solid organs are unremarkable. There is no evidence of a free fluid or free air. No evidence of bowel obstruction. Liquefied stool in the colon may be a sign of diarrhea. Correlate clinically for gastroenteritis. Solid organs appear normal. There is no hydronephrosis. Lung bases are clear. Gallbladder is unremarkable. IMPRESSION: Correlate for diarrhea given liquefied stool in the colon. Gastroenteritis may be present. Negative exam otherwise (2) Abdominal pain Assessment & Plan: 19-year-old male with abdominal discomfort, constipation, dehydration. Likely viral in nature. CT noted. GI input appreciated. Given labs exam history and findings unlikely to be appendicitis or other surgical planning at this time. Abdominal pain is resolved since admission and he is colicky from above discomfort. No acute surgical intervention planned. Bowel regimen Diet as tolerated We will follow with examinations and recommendations Thank you for allowing me to participate in patient's care Yoshi Dial Mar 27, 2019 15:41
--- NOTE | 2019-03-28 22:33 | Discharge Summary ---
Discharge Summary Discharge Summary _ DATE OF ADMISSION: 03/26/2019 DATE OF DISCHARGE: 03/27/2019 DISCHARGED BY: Dr. Seb Dumas CONSULTANTS: Dr. Yoshi Dial BRIEF HOSPITAL COURSE: Patient is a 19-year-old male, with no prior history of GI illness, presented due to days of constipation. He took Dulcolax tablets x2 and developed diarrhea. He also had nausea and vomiting. There was no recent travel, recent antibiotic use, or recent unusual oral intake. He presented to ED for further evaluation. On evaluation at the ED, vital signs were stable. WBC was elevated at 12. Hemoglobin 8 stable. Electrolytes normal. Creatinine was elevated at 4. Urine drug screen was negative. Urinalysis showed +1 leukocyte esterase, 2-4 urine RBC, 0-2 urine WBC. The abdomen and pelvis showed liquefied stool in the colon. Possible gastroenteritis. He was given IV hydration. He was given Reglan and Benadryl. He continued to have abdominal pain. Nausea was slightly improved. Continued to have pain and vomiting. He was then admitted for evaluation of possible gastroenteritis, possible colitis. GI and surgeon were consulted. Patient was passing flatus however no BM. Examination and findings unlikely to be appendicitis. There was no acute surgical intervention planned. Diet was tolerated. He was observed off antibiotics. Patient was presumed to have viral gastroenteritis. He was tolerating diet. Pain improved. He was passing flatus and BM. He was eventually cleared for discharge FINAL DIAGNOSES: Gastroenteritis, probably viral Mild leukocytosis, resolved Mild hypovolemia Dehydration DISPOSITION: Patient was discharged home. DISCHARGE INSTRUCTIONS: Follow-up in a week. I have been assigned to complete a discharge summary on this account, I was not involved with the patient's management.--TRUDI Oconnell Jacqueline Robles NP Mar 28, 2019 22:33
--- NOTE | 2019-03-30 14:38 | NUR ---
*-* INSURANCE *-* ALL CLINICALS AND REVIEWS HAVE BEEN FAXED TO: [employer] FA[employer] CLINICALS TO: [phone]
== END 2019-03-27 15:15 | disposition home or self-care (01) | DRG 392 ==
LOC: EMR 20:25 → 4E 03-26 00:49 → EDBEDREQ 03-26 01:37
DX: A08.4 Viral intestinal infection, unspecified (principal); E86.1 Hypovolemia; E86.0 Dehydration
CPT/HCPCS: 36415; 74177; 80048; 80053; 80307; 81003; 82248; 82550; 83690; 85025; 85610; 85651; 85730; 86140; 87045; 96361; 96374; 96375; 96376; 99285; J2405; J2765